=== PATIENT | male | born 2000 | race Caucasian/White ===

== ENCOUNTER 2018-04-01 17:29 | Emergency (ER) | payer MEDICAID ==
[2018-04-01 17:52] VITALS: BP 111/70; PULSE 60; TEMP 98.1; O2SAT 100
--- NOTE | 2018-04-01 19:04 | C.PDOC ---
History Of Present Illness 18y.o male comes in with complaints of left ankle injury sustained while playing soccer yesterday. Patient states he jumped, landing on curled in foot. Pain is worse with movement and ambulation. Denies change in sensation. No other trauma. Time Seen by Provider: 04/01/18 18:13 Chief Complaint (Nursing): Lower Extremity Problem/Injury History Per: Patient History/Exam Limitations: no limitations Current Symptoms Are (Timing): Still Present Past Medical History Reviewed: Historical Data, Nursing Documentation, Vital Signs Vital Signs: Last Vital Signs Temp 98.1 F 04/01/18 17:49 Pulse 60 04/01/18 17:49 Resp 20 04/01/18 20:31 BP 111/70 04/01/18 17:49 Pulse Ox 100 04/01/18 19:48 - Medical History PMH: Seizures - [facility] Procedures APPLICATION OF SPLINT (03/03/15) Family History: States: Unknown Family Hx - Social History Hx Tobacco Use: No Hx Alcohol Use: No Hx Substance Use: No - Immunization History Hx Tetanus Toxoid Vaccination: No Hx Influenza Vaccination: No Hx Pneumococcal Vaccination: No Review Of Systems Gastrointestinal: Negative for: Vomiting Musculoskeletal: Positive for: Other (left ankle pain) Physical Exam - Physical Exam Appears: Non-toxic, No Acute Distress Skin: Normal Color, Warm, Dry, No Rash Head: Atraumatic, Normacephalic Eye(s): bilateral: Normal Inspection, EOMI Nose: Normal Oral Mucosa: Moist Neck: Normal ROM, Supple Chest: Symmetrical Respiratory: No Accessory Muscle Use Extremity: Tenderness, No Calf Tenderness, Capillary Refill (<2 sec), No Deformity, Other (left lateral ankle, left medial foot is tender to palpation) Pulses: Left Dorsalis Pedis: Normal, Right Dorsalis Pedis: Normal Neurological/Psych: Oriented x3, Normal Speech, Normal Motor, Normal Sensation ED Course And Treatment O2 Sat by Pulse Oximetry: 100 (RA) Pulse Ox Interpretation: Normal - Other Rad FootXR X-Ray: Interpreted by Me, Viewed By Me Interpretation: no fx or dislocation Ankle XR X-Ray: Interpreted by Me, Viewed By Me Interpretation: no fx or dislocation Progress Note: Patient declined pain meds. XR negative for fracture. Everardo wrap applied by technical writing lead/mgr and air cast. Crutch instructs given and educated on RICE. Disposition - Disposition Referrals: Jamison Aguilar III, MD [Staff Provider] - Disposition: HOME/ ROUTINE Disposition Time: 19:45 Condition: STABLE Additional Instructions: Information given regarding preliminary nature of x-ray reading, with possibility that a fracture not initially detected in the ED may be found on final reading, with subsequent notification. Patient was therefore told that close follow up care for further evaluation is instructed. Please apply ice to area 15 minutes three times a day. Take Motrin as needed for pain every 6 hours , with food to not upset stomach. Instructions: Ankle Sprain Forms: [employer] ([place]) - Clinical Impression Clinical Impression: Ankle sprain - Scribe Statement The provider has reviewed the documentation as recorded by the Scribe (Qasim Kingsley) All medical record entries made by the Scribe were at my direction and personally dictated by me. I have reviewed the chart and agree that the record accurately reflects my personal performance of the history, physical exam, medical decision making, and the department course for this patient. I have also personally directed, reviewed, and agree with the discharge instructions and disposition.
[2018-04-01 20:32] VITALS: RESP 20
--- NOTE | 2018-04-02 09:00 | RAD ---
PROCEDURE: Left Ankle Radiographs. HISTORY: TRAUMA COMPARISON: Comparison made with concurrent radiographs left foot FINDINGS: BONES: Normal. No fracture. JOINTS: Normal. No osteoarthritis. Ankle mortise maintained. Talar dome intact SOFT TISSUES: Mild soft tissue swelling overlying the lateral malleolus OTHER FINDINGS: None. IMPRESSION: No evidence of acute displaced fracture nor dislocation. Mild soft tissue swelling overlying the lateral malleolus
--- NOTE | 2018-04-02 09:01 | RAD ---
PROCEDURE: Left Foot Radiographs. HISTORY: TRAUMA COMPARISON: None. FINDINGS: BONES: Normal. No fracture. JOINTS: Normal. SOFT TISSUES: Normal. OTHER FINDINGS: None. IMPRESSION: Normal left foot radiographs.
== END 2018-04-01 20:31 | disposition home or self-care (01) ==
LOC: C.ER 17:29
DX: S93.402A Sprain of unspecified ligament of left ankle, initial encounter (principal); X58.XXXA Exposure to other specified factors, initial encounter; Y93.66 Activity, soccer